=== PATIENT | female | born 1975 | race Hispanic/Latino ===

== ENCOUNTER 2018-06-27 12:33 | Emergency (ER) | payer BC ==
[2018-06-27 12:34] VITALS: BMI 41.9
[2018-06-27 13:26] VITALS: RESP 18
[2018-06-27] MEDS ORDERED: Sodium Chloride 0.9% 1,000 ML IV STA (14:16)
[2018-06-27 15:15] LABS: URINE BILIRUBIN NEGATIVE (NEGATIVE); URINE BLOOD TRACE-INTACT (NEGATIVE); URINE GLUCOSE (UA) NEGATIVE (NEGATIVE); URINE LEUKOCYTE ESTERASE SMALL Leu/uL (NEGATIVE); URINE PROTEIN TRACE mg/dL (<30 mg/dL); URINE UROBILINOGEN 0.2 E.U./dL (<1 E.U./dL)
[2018-06-27 15:16] LABS: URINE APPEARANCE SL CLOUDY (CLEAR); URINE COLOR YELLOW (YELLOW)
--- NOTE | 2018-06-27 15:23 | ED PDOC ---
Arrival/HPI - General Chief Complaint: Abdominal Pain Time Seen by Provider: 06/27/18 13:32 Historian: Patient - History of Present Illness Narrative History of Present Illness (Text): 06/27/18 15:17 43 y/o F with PMH of Asthma presents to the Emergency Department complaining of RLQ abdominal pain x3days which has now resolved, and has been replaced with R flank pain which began today, with nausea as well. Patient states that she was at work today when the flank pain became untolerable, which prompted her to come to the ED. Patient denies any fevers, chills, headache, dizziness, chest pain, shortness of breath, dyspnea on exertion, cough, vomiting, diarrhea, back pain, neck pain, or any other complaint. Reports some dysuria. Time/Duration: < week Symptom Onset: Gradual Symptom Course: Unchanged Activities at Onset: Light Context: Home, Work Past Medical History - Provider Review Nursing Documentation Reviewed: Yes - Pulmonary Hx Asthma: Yes - Hematological/Oncological Hx Anemia: Yes - Psychiatric Hx Depression: No Hx Emotional Abuse: No Hx Physical Abuse: No Hx Substance Use: No - Surgical History Hx Section: Yes (x 3) Hx Hysterectomy: Yes Hx Tonsillectomy: Yes - Anesthesia Hx Anesthesia: Yes Hx Anesthesia Reactions: No Hx Malignant Hyperthermia: No - Suicidal Assessment Feels Threatened In Home Enviroment: No Family/Social History - Physician Review Nursing Documentation Reviewed: Yes Family/Social History: No Known Family HX Smoking Status: Never Smoked Hx Alcohol Use: No Hx Substance Use: No Hx Substance Use Treatment: No Allergies/Home Meds Allergies/Adverse Reactions: Allergies No Known Allergies Allergy (Verified 06/03/14 14:39) Home Medications: Home Meds Medication Instructions Recorded Confirmed Albuterol Sulfate [Albuterol Hfa] 0.09 mg IH Q4 PRN 01/21/13 06/03/14 Review of Systems - Physician Review All systems were reviewed & negative as marked: Yes - Review of Systems Constitutional: absent: Fatigue, Fevers ENT: absent: Sore Throat, Rhinorrhea Respiratory: absent: SOB, Cough, Wheezing Cardiovascular: absent: Chest Pain Gastrointestinal: Abdominal Pain, Nausea. absent: Diarrhea, Vomiting Musculoskeletal: absent: Arthralgias, Back Pain, Neck Pain, Myalgias Neurological: absent: Headache, Dizziness Physical Exam Vital Signs Reviewed: Yes Vital Signs Temp Pulse Resp BP Pulse Ox 06/27/18 12:34 98.7 F 80 18 132/87 99 Temperature: Afebrile Blood Pressure: Normal Pulse: Regular Respiratory Rate: Normal Appearance: Positive for: Uncomfortable (painful distress) Pain Distress: Mild Mental Status: Positive for: Alert and Oriented X 3 - Systems Exam Head: Present: Atraumatic, Normocephalic Conjunctiva: Present: Normal Mouth: Present: Moist Mucous Membranes Respiratory/Chest: Present: Clear to Auscultation, Good Air Exchange. No: Respiratory Distress Cardiovascular: Present: Regular Rate and Rhythm, Normal S1, S2 Abdomen: No: Tenderness, Rebound, Guarding Back: Present: CVA Tenderness (Right side) Upper Extremity: Present: Normal Inspection Lower Extremity: Present: Normal Inspection Neurological: Present: GCS=15, Speech Normal Skin: Present: Warm, Dry. No: Rashes Psychiatric: Present: Alert, Oriented x 3, Normal Insight Medical Decision Making ED Course and Treatment: 06/27/18 13:06 Impression: 43 y/o F presents to the Emergency Department complaining of RLQ abdominal pain x3days w/nausea and R. flank pain today. Plan: --Labs --Toradol --Zofran Inj --Saline IV -- Reassess and disposition Prior Visits: Notes and results from previous visits were reviewed. 06/27/18 13:35 EKG reviewed as: --NSR @75bpm --normal axis --normal intervals --no ST changes Lab results reviewed, UTI noted. Some trace blood present as well, so CT abdomen/pelvis without contrast done to evaluate for renal calculus. CT result noted. All results discussed with patient. She is much more comfortable after pain medication, fluids, and antiemetics. Lying comfortably in stretcher. Will treat for pyelonephritis. 750mg levaquin ivpb ordered here in the ED, and Rx written for PO levaquin. Stable for discharge home. - Medication Orders Current Medication Orders: Discontinued Medications Sodium Chloride (Sodium Chloride 0.9%) 1,000 mls @ 999 mls/hr IV .Q1H1M STA Stop: 06/27/18 15:16 Ketorolac Tromethamine (Toradol) 30 mg IVP STAT STA Stop: 06/27/18 14:17 Ondansetron HCl (Zofran Inj) 4 mg IVP STAT STA Stop: 06/27/18 14:17 - PA / ADMINISTRATIVE DIETITIAN / Resident Statement MD/DO has reviewed & agrees with the documentation as recorded. - Scribe Statement The provider has reviewed the documentation as recorded by the Nancy Gonzáles All medical record entries made by the Nancy were at my direction and personally dictated by me. I have reviewed the chart and agree that the record accurately reflects my personal performance of the history, physical exam, medical decision making, and the department course for this patient. I have also personally directed, reviewed, and agree with the discharge instructions and disposition. Disposition/Present on Arrival - Present on Arrival Any Indicators Present on Arrival: No History of DVT/PE: No History of Uncontrolled Diabetes: No Urinary Catheter: No History of Decub. Ulcer: No History Surgical Site Infection Following: None - Disposition Have Diagnosis and Disposition been Completed?: Yes Diagnosis: Pyelonephritis Disposition: HOME/ ROUTINE Disposition Time: 18:00 Patient Plan: Discharge Patient Problems: Current Active Problems Problem Status Onset Pyelonephritis Acute Condition: STABLE Discharge Instructions (ExitCare): Kidney Infection (DC) Additional Instructions: YEMI DUMAS, thank you for letting us take care of you today. Your provider was Cristela Parikh MD and you were treated for back and flank pain. The emergency medical care you received today was directed at your acute symptoms. If you were prescribed any medication, please fill it and take as directed. It may take several days for your symptoms to resolve. Return to the Emergency Department if your symptoms worsen, do not improve, or if you have any other problems. Please contact your doctor or call one of the physicians/clinics you have been referred to that are listed on the Patient Visit Information form that is included in your discharge packet. Bring any paperwork you were given at discharge with you along with any medications you are taking to your follow up visit. Our treatment cannot replace ongoing medical care by a primary care provider outside of the emergency department. Thank you for allowing the [facility] team to be part of your care today. If you had an X-Ray or CT scan: A Radiologist will review the ED reading if any change in treatment is needed we will contact you. If you had a blood, urine, or wound culture: It will take several days for the results, if any change in treatment is needed we will contact you. If you had an STI test: It will take 48 hours for the results. Please call after 1 week if you have not heard back. Prescriptions: Levofloxacin [Levaquin] 750 mg PO DAILY #4 tablet Forms: [facility] ([place])
[2018-06-27 15:40] LABS: BASO # 0.02 K/mm3 (0.0-2.0); BASO % 0.2 % (0.0-3.0); EOS # 0.1 (0.0-0.7); EOS % 0.7 % (1.5-5.0); HEMOGLOBIN 13.5 g/dL (12.0-16.0); LYMPH # 2.2 (1.2-3.4); MEAN CELL VOLUME 87.9 fl (80.0-105.0); MEAN CORPUSCULAR HEMOGLOBIN 29.1 pg (25.0-35.0); MEAN CORPUSCULAR HGB CONC 33.1 g/dl (31.0-37.0); MEAN PLATELET VOLUME 10.7 fl (7.0-11.0); MONO # 0.7 (0.1-0.6); MONO % 8.7 % (1.0-6.0); RBC 4.64 10^6/uL (3.5-6.1); RED CELL DISTRIBUTION WIDTH 12.9 % (11.5-14.5); WHITE BLOOD COUNT 8.1 10^3/uL (4.5-11.0)
[2018-06-27 15:51] LABS: BLOOD UREA NITROGEN 10 mg/dL (7-21); CALCIUM 9.4 mg/dL (8.4-10.5); GFR NON-AFRICAN AMERICAN > 60
[2018-06-27 15:55] LABS: URINE BACTERIA MOD /hpf; URINE EPITHELIAL CELLS 0 - 2 /hpf (0-5); URINE RBC 0 - 2 /hpf (0-2)
--- NOTE | 2018-06-27 16:43 | CT ---
Date of service: 06/27/2018 PROCEDURE: CT abdomen pelvis HISTORY: Rule out kidney stone COMPARISON: None. TECHNIQUE: Contiguous axial images of the abdomen and pelvis. Oral contrast was administered. No IV contrast given. Coronal and Sagittal reformats generated. Radiation dose: Total exam DLP = 1070.68 mGy-cm. This CT exam was performed using one or more of the following dose reduction techniques: Automated exposure control, adjustment of the mA and/or kV according to patient size, and/or use of iterative reconstruction technique. FINDINGS: LOWER THORAX: Minor passive/dependent type atelectasis both posterior lower lung heredia. Heart size within range of pericardial effusion. Small hiatal hernia. LIVER: Liver is enlarged measuring over 20 cm in CC dimension. Moderate fatty hepatic infiltration. GALLBLADDER AND BILE DUCTS: Gallbladder physiologically distended. No evidence of intraluminal gallbladder calculi. PANCREAS: U the pancreas appears unremarkable without obvious mass collection or calcification. SPLEEN: Spleen is borderline/mildly enlarged measuring nearly 13 cm in AP dimension. No obvious splenic masses collections ADRENALS: No adrenal lesions. KIDNEYS AND URETERS: Kidneys demonstrate relatively symmetric nephrograms. There is mild columnization of both ureters more so on the right side however no obvious ureteral calculi identified. BLADDER: The urinary bladder is incompletely distended which in part accounts for thick-walled appearance however correlation with urinalysis recommended to exclude cystitis. No evidence of intraluminal urinary bladder calculi. REPRODUCTIVE: Hysterectomy APPENDIX: Normal appendix BOWEL: Study is somewhat limited to lack oral contrast material. The stomach is incompletely distended. Visualized loops of small bowel exhibit normal contour and caliber however there does appear to be fecalized content within multiple loops of small bowel suggesting mild stasis. PERITONEUM: Unremarkable. No fluid collection. No free air. Small fat containing umbilical hernia. LYMPH NODES: Unremarkable. No enlarged lymph nodes. VASCULATURE: Unremarkable. No aortic aneurysm. No aortic atherosclerotic calcification or mural plaque present. BONES: Mild multilevel degenerative spondylosis of the lower thoracic and lumbar spine. OTHER FINDINGS: None. IMPRESSION: Hepatomegaly with moderate fatty hepatic infiltration. Low-lying/mild splenomegaly. Mild columnization of both ureters with no definitive evidence of obstructing calculi. Thickening of the urinary bladder likely distention however correlation with urinalysis recommended to cystitis. Hysterectomy.
[2018-06-27] MEDS ORDERED: levoFLOXacin 750 mg in D5W 150 ML BAG IVPB ONE (17:42)
--- NOTE | 2018-06-27 17:57 | CARD ---
APPROVED REPORT Date of service: 06/27/2018 EKG Measurement Heart [id number] <Conclusion> Normal sinus rhythm Normal ECG
[2018-06-27 19:06] VITALS: BP 123/68; PULSE 66; TEMP 98; O2SAT 100
== END 2018-06-27 20:25 | disposition home or self-care (01) ==
LOC: ED 12:33
DX: N12 Tubulo-interstitial nephritis, not specified as acute or chronic (principal)
CPT/HCPCS: 74176; 80048; 81001; 81025; 85025; 87086; 93005; 96361; 96365; 96375; 99283; J1885; J2405; J7030